=== PATIENT | female | born 1965 | race African-American/Black ===

== ENCOUNTER 2025-04-02 20:08 | Emergency (ER) | payer MEDICAID ==
[~2025-04-02] VITALS: Ht 154.9 cm; Wt 85.9 kg
[2025-04-02] MEDS ORDERED: PANT-31 PO (20:57)
[2025-04-02] MEDS ORDERED: ESOM20CA31 PO (20:57)
[2025-04-02] MEDS ORDERED: MAG30ORA11 PO (20:57)
[2025-04-02] MEDS ORDERED: ATOR40TA28 PO (20:57)
[2025-04-02 21:34] LABS: PLATELET COUNT (AUTO) 201 K/uL (150-450); RED BLOOD CELL COUNT(AUTO) 4.41 MIL/uL (4.00-5.20); RED CELL DISTRIBUTION WIDTH 14.3 % (11.5-14.5); WHITE BLOOD COUNT (AUTO) 6.9 K/uL (4.5-11.0)
[2025-04-02 21:40] LABS: CALCIUM, TOTAL 9.5 mg/dL (8.8-10.5); CREATININE 0.84 mg/dL (0.60-1.30); GLOMERULAR FILTR. RATE CALC > 60 mL/min (>60); GLUCOSE,RANDOM 113 mg/dL (70-110); SODIUM SERUM 138 mmol/L (136-145); UREA NITROGEN, BLOOD 8 mg/dL (7-18)
[2025-04-02 21:49] LABS: TROPONIN I-HIGH SENSITIVITY 4 ng/L (<51)
[2025-04-02 22:20] LABS: APPEARANCE,URINE HAZY (CLEAR); GLUCOSE, URINE (UA) NEGATIVE (NEGATIVE); LEUKOCYTE ESTERASE ,URINE LARGE (NEGATIVE); NITRATE,URINE NEGATIVE (NEGATIVE); OCCULT BLOOD,URINE NEGATIVE (NEGATIVE); SPECIFIC GRAVITIY, URINE 1.018 (1.003-1.030)
[2025-04-02 22:49] LABS: SQUAMOUS EPITHELIAL CELL,UR Few /LPF (None Seen)
[2025-04-03 01:00] VITALS: BP 133/84; PULSE 74; RESP 18; TEMP 98.9; O2SAT 99
[2025-04-03] MEDS ORDERED: MAG30ORA11 PO (01:13)
[2025-04-03] MEDS ORDERED: NITR-104 PO (01:13)
[2025-04-03] MEDS: FentaNYL CITRATE PF 100 MCG/2 ML VIAL IM ONE (01:23)
[2025-04-03] MEDS: PB/HYOSCY/ATR/SCOP/LIDO/MAALOX 55 ML BOTTLE PO ONE (01:29)
== END 2025-04-03 01:59 | disposition home or self-care (01) ==
LOC: EMS 20:08
DX: K21.00 Gastro-esophageal reflux disease with esophagitis, without bleeding (principal); N30.10 Interstitial cystitis (chronic) without hematuria; E78.00 Pure hypercholesterolemia, unspecified; Z87.19 Personal history of other diseases of the digestive system; Z88.6 Allergy status to analgesic agent; Z79.899 Other long term (current) drug therapy
CPT/HCPCS: 99283; 80048; 81001; 83690; 84484; 85025; 87086; 36415; 96372; J3010